=== PATIENT | male | born 2005 | race Caucasian/White ===

== ENCOUNTER 2024-09-05 20:59 | Emergency (ER) | payer OTHER, BC ==
[~2024-09-05] VITALS: Ht 175.3 cm; Wt 90.0 kg
[2024-09-05] MEDS ORDERED: DIPHTH,PERTUSS(ACELL),TET VAC 0.5 ML SYRINGE IM ONE (21:45)
[2024-09-05] MEDS ORDERED: OXYCODONE HCL 5 MG TAB PO ONE (21:45)
[2024-09-05 23:50] VITALS: BP 139/94
== END 2024-09-05 23:50 | disposition short-term general hospital (02) ==
LOC: ED 20:59
DX: S92.321A Displaced fracture of second metatarsal bone, right foot, initial encounter for closed fracture (principal); S92.311A Displaced fracture of first metatarsal bone, right foot, initial encounter for closed fracture; S92.334A Nondisplaced fracture of third metatarsal bone, right foot, initial encounter for closed fracture; V89.2XXA Person injured in unspecified motor-vehicle accident, traffic, initial encounter
CPT/HCPCS: 73620; 73630; 73700; 90715; A9270